=== PATIENT | male | born 1955 | race Caucasian/White ===

== ENCOUNTER → 2017-05-12 | Outpatient (CLI) | payer OTHER | LOC: FIMAGING 13:59 | PROVIDERS: ATTEND Internal Medicine | DX: N13.2 Hydronephrosis with renal and ureteral calculous obstruction (principal); I71.4 Abdominal aortic aneurysm, without rupture ==

== ENCOUNTER → 2018-10-20 | Outpatient (CLI) | payer OTHER | LOC: FIMAGING 09:48 | PROVIDERS: ATTEND Internal Medicine | DX: I71.4 Abdominal aortic aneurysm, without rupture (principal) ==